=== PATIENT | male | born 1975 | race Caucasian/White ===

== ENCOUNTER 2017-12-16 00:25 | Inpatient (IN) | payer OTHER, MEDICAID ==
[2017-12-16] MEDS: ASPIRIN 325 MG TAB PO (01:25)
[2017-12-16] MEDS: LABETALOL HCL 20MG INJ IV (01:25)
[2017-12-16 01:30] LABS: ADD MAN DIFF? NO
[2017-12-16 02:03] LABS: ANION GAP 12 (8-16); BLOOD UREA NITROGEN 17 mg/dl (7-20); CALCIUM 9.3 mg/dl (8.4-10.2); CARBON DIOXIDE 29 mmol/L (21-31); CHLORIDE 101 mmol/L (97-110); CREATININE 0.86 mg/dl (0.61-1.24); GLUCOSE 216 mg/dl (70-220); POTASSIUM 4.2 mmol/L (3.5-5.1); SODIUM 138 mmol/L (135-144)
[2017-12-16 02:15] LABS: B-TYPE NATRIURETIC PEPTIDE 34 PG/ML (0-125)
[2017-12-16 02:16] LABS: TROPONIN-I < 0.012 ng/ml (0.00-0.12)
[2017-12-16 02:20] LABS: BASOPHIL # 0.1 10^3/ul (0.0-0.1); BASOPHILS % 0.8 % (0.0-2.0); EOSINOPHILS # 0.7 10^3/ul (0.0-0.5); HEMATOCRIT 41.9 % (42.0-52.0); HEMOGLOBIN 14.7 g/dl (14.0-18.0); LYMPHOCYTES # 3.6 10^3/ul (0.8-2.9); LYMPHOCYTES % 26.8 % (15.0-51.0); MEAN CORPUSCULAR HEMOGLOBIN 29.2 pg (29.0-33.0); MEAN CORPUSCULAR HGB CONC 35.1 g/dl (32.0-37.0); MEAN CORPUSCULAR VOLUME 83.1 fl (82.0-101.0); MEAN PLATELET VOLUME 10.2 fl (7.4-10.4); MONOCYTE # 1.1 10^3/ul (0.3-0.9); MONOCYTES % 8.1 % (0.0-11.0); NEUTROPHIL # 7.8 10^3/ul (1.6-7.5); NEUTROPHILS % 58.7 % (39.0-77.0); PLATELET COUNT 296 10^3/UL (140-415); RED BLOOD COUNT 5.04 10^6/ul (4.70-6.10); RED CELL DISTRIBUTION WIDTH 13.1 % (11.5-14.5)
[2017-12-16 02:20] LABS: WHITE BLOOD COUNT 13.3 10^3/ul (4.8-10.8)
[2017-12-16] MEDS: KETOROLAC 30 MG INJ IV ×2 (02:28→03:17)
[2017-12-16] MEDS: hydrALAzine 20 MG INJ IV ×2 (02:58→04:07)
[2017-12-16] MEDS: NEOMYC/POLYMYX/HC 10 ML OTIC SUSP RIGHT EAR ×5 (04:39→20:42)
[2017-12-16] MEDS ORDERED: ACETAMINOPHEN 325 MG TAB PO (05:00)
[2017-12-16] MEDS ORDERED: NACL 0.9% 3 ML SYG IV (06:00)
[2017-12-16] MEDS: ONDANSETRON 4 MG INJ IV (07:02)
[2017-12-16] MEDS: HYDROCODONE/APAP (5/325) TAB PO ×2 (07:02→20:43)
[2017-12-16 07:45] LABS: CREATINE KINASE 148 IU/L (23-200)
[2017-12-16 07:54] LABS: CK INDEX 0.9
[2017-12-16 08:00] LABS: TROPONIN-I 0.014 ng/ml (0.00-0.12)
[2017-12-16 08:07] LABS: CK-MB 1.28 ng/ml (0.0-2.4)
[2017-12-16] MEDS: HYDROCHLOROTHIAZIDE 25 MG TAB PO (10:02)
[2017-12-16] MEDS: ENOXAPARIN 40 MG/0.4 ML SYG SC (10:03)
[2017-12-16] MEDS: ACETAMINOPHEN 325 MG TAB PO (10:07)
[2017-12-16] MEDS: CARBAMIDE PEROXIDE 6.5% 15ML OTIC BOTH EARS ×4 (10:51→20:42)
[2017-12-16 13:01] LABS: CREATINE KINASE 127 IU/L (23-200)
[2017-12-16 13:14] LABS: CK INDEX 0.8
[2017-12-16 13:17] LABS: CK-MB 0.97 ng/ml (0.0-2.4); TROPONIN-I < 0.012 ng/ml (0.00-0.12)
[2017-12-16 13:24] LABS: HEMOGLOBIN A1C 7.5 % (0-5.9)
[2017-12-16] MEDS ORDERED: GLUCOSE GEL 15 GRAM TUBE PO ×2 (14:30)
[2017-12-16] MEDS ORDERED: GLUCAGON 1 MG INJ IM (14:30)
[2017-12-16] MEDS ORDERED: GLUCOSE GEL 15 GRAM TUBE BUCCAL (14:30)
[2017-12-16] MEDS ORDERED: DEXTROSE 50% 50 ML SYRINGE IV ×2 (14:30)
[2017-12-16] MEDS: BENAZEPRIL 5 MG TAB PO (15:56)
[2017-12-16] MEDS: INSULIN ASPART [NOVOLOG] 3 ML PEN SC ×3 (17:35→20:43)
[2017-12-16] MEDS: INSULIN GLARGINE [LANtus] 3 ML PEN SC (20:44)
[2017-12-17] MEDS: ACCU-CHEK XX (01:07)
[2017-12-17 05:48] LABS: ADD MAN DIFF? NO
[2017-12-17 06:14] LABS: ANION GAP 14 (8-16); BLOOD UREA NITROGEN 19 mg/dl (7-20); CALCIUM 9.6 mg/dl (8.4-10.2); CARBON DIOXIDE 30 mmol/L (21-31); CHLORIDE 101 mmol/L (97-110); CREATININE 0.97 mg/dl (0.61-1.24); GLUCOSE 150 mg/dl (70-220); MAGNESIUM 2.1 mg/dl (1.7-2.5); POTASSIUM 3.9 mmol/L (3.5-5.1); SODIUM 141 mmol/L (135-144)
[2017-12-17 06:19] LABS: CHOLESTEROL 198 mg/dl (100-200)
[2017-12-17 06:19] LABS: CHOL/HDL RATIO 6.8 RATIO; HDL CHOLESTEROL 29 mg/dl (27-67); LDL CHOLESTEROL,CALCULATED 127 mg/dl; TRIGLYCERIDES 211 mg/dl (0-149)
[2017-12-17 06:38] LABS: BASOPHIL # 0.1 10^3/ul (0.0-0.1); BASOPHILS % 0.7 % (0.0-2.0); EOSINOPHILS # 0.5 10^3/ul (0.0-0.5); EOSINOPHILS % 4.1 % (0.0-7.0); HEMOGLOBIN 14.8 g/dl (14.0-18.0); LYMPHOCYTES # 2.9 10^3/ul (0.8-2.9); LYMPHOCYTES % 22.7 % (15.0-51.0); MEAN CORPUSCULAR HEMOGLOBIN 29.4 pg (29.0-33.0); MEAN CORPUSCULAR HGB CONC 35.2 g/dl (32.0-37.0); MEAN CORPUSCULAR VOLUME 83.3 fl (82.0-101.0); MEAN PLATELET VOLUME 10.3 fl (7.4-10.4); MONOCYTE # 0.9 10^3/ul (0.3-0.9); MONOCYTES % 7.3 % (0.0-11.0); NEUTROPHIL # 8.3 10^3/ul (1.6-7.5); NEUTROPHILS % 64.9 % (39.0-77.0); PLATELET COUNT 289 10^3/UL (140-415); RED BLOOD COUNT 5.04 10^6/ul (4.70-6.10); RED CELL DISTRIBUTION WIDTH 13.2 % (11.5-14.5)
[2017-12-17 06:38] LABS: WHITE BLOOD COUNT 12.8 10^3/ul (4.8-10.8)
[2017-12-17] MEDS: INSULIN ASPART [NOVOLOG] 3 ML PEN SC ×6 (07:35→17:35)
[2017-12-17] MEDS: metFORMIN 500 MG TAB PO ×2 (08:41→19:04)
[2017-12-17] MEDS: NEOMYC/POLYMYX/HC 10 ML OTIC SUSP RIGHT EAR ×3 (08:42→17:36)
[2017-12-17] MEDS: HYDROCHLOROTHIAZIDE 25 MG TAB PO (08:42)
[2017-12-17] MEDS: BENAZEPRIL 5 MG TAB PO ×2 (08:42→16:00)
[2017-12-17] MEDS: CARBAMIDE PEROXIDE 6.5% 15ML OTIC BOTH EARS ×3 (08:42→17:37)
[2017-12-17] MEDS: ENOXAPARIN 40 MG/0.4 ML SYG SC (08:52)
[2017-12-17] MEDS: hydrALAzine 20 MG INJ IV (16:28)
[2017-12-17] MEDS ORDERED: INSULIN ASPART [NOVOLOG] 3 ML PEN SC (17:35)
[2017-12-17] MEDS: HYDROCODONE/APAP (5/325) TAB PO (17:35)
== END 2017-12-17 19:11 | disposition home or self-care (01) | DRG 305 ==
LOC: MS3 08:04 → E/R 00:25 → MS3 04:45
DX: I16.0 Hypertensive urgency (principal); Z68.41 Body mass index [BMI] 40.0-44.9, adult; E11.9 Type 2 diabetes mellitus without complications; E78.5 Hyperlipidemia, unspecified; R06.00 Dyspnea, unspecified; H60.91 Unspecified otitis externa, right ear; E66.01 Morbid (severe) obesity due to excess calories
CPT/HCPCS: 36415; 70450; 71045; 80048; 80061; 82550; 82553; 82962; 83036; 83735; 83880; 84484; 85025; 93005; 93306; 96374; 96375; 96376; 99291-25